=== PATIENT | male | born 1995 | race Caucasian/White ===

== ENCOUNTER 2016-11-13 14:27 | Emergency (ER) | payer OTHER ==
[~2016-11-13] VITALS: Ht 185.4 cm; Wt 90.7 kg
[2016-11-13 14:34] VITALS: TEMP 36.6; Ht 185.4 cm; Wt 90.7 kg
--- NOTE | 2016-11-13 15:00 | EMERGENCY ROOM VISIT NOTE ---
ED Visit Note First contact with patient: 14:40 CHIEF COMPLAINT: Toe injury HISTORY OF PRESENT ILLNESS: This 20-year-old male patient presents to the emergency department ambulatory complaining of pain in the right fifth toe. The patient states that he was running in the hallway and accidentally stubbed his toe. There is pain with weight bearing and they are able to move the toe fairly normally. There was no bleeding. There is no redness, warmth, or discharge. The patient has taken nothing for their symptoms. The patient has not had previous problems with this toe. No other complaints. REVIEW OF SYSTEMS: A 6 system review of systems was completed with positives and pertinent negatives listed in the HPI. ALLERGIES: No known drug allergies MEDICATIONS: None PMH: None SOCIAL HISTORY: The patient is a student. He lives locally PHYSICAL EXAM: Vital Signs: Reviewed Nurse's notes, vital signs stable. GENERAL : This is a 20-year-old male, in no acute distress, but appears in pain, well- developed, well-nourished. SKIN: There is no erythema, redness, or warmth of the right fifth toe. There is mild ecchymosis. There is no active bleeding and no laceration. Capillary refill less than two seconds. MUSCULOSKELETAL: The right fifth toe is tender to palpation over the entire toe. There is minimal limitation of motion due to tenderness. There is no visual deformity. The ankle joint is not swollen or tender. The foot is not swollen or tender. NEURO: Patient was alert and oriented to person place and time. Normal sensation to light and sharp touch. EMERGENCY DEPARTMENT COURSE: I examined the patient. An X-Ray of the right fifth toe was reviewed by myself and by radiology and shows fracture. The affected toe was man taped to the adjacent toe to provide some immobilization. The patient was placed in a postop shoe under my direction and the position was satisfactory. The patient was instructed on the use of crutches. The patient was discharged home in stable condition. RIGHT TOE(S) MIN 2 VIEWS CLINICAL HISTORY: right fifth toe injury Right trauma. Pain. COMPARISON: None. DISCUSSION: Fracture proximal phalanx fifth toe. Slight bony distraction and angulation. No evidence of dislocation. Moderate localized soft tissue edema. All remaining osseous structures are unremarkable. There is no evidence for soft tissue swelling. IMPRESSION: Oblique fracture proximal phalanx fifth toe. Localized soft tissue edema. Current/Historical Medications No Active Prescriptions or Reported Meds Allergies Coded Allergies: No Known Allergies (Unverified , 11/13/16) Vital Signs Date Time Temp Pulse Resp B/P Pulse Ox O2 Delivery O2 Flow Rate FiO2 11/13/16 15:35 68 18 122/78 98 11/13/16 14:34 36.6 50 18 119/73 98 Room Air Departure Information Impression Primary Impression: Fracture of fifth toe, right, closed Dispostion Home / Self-Care Condition GOOD Prescriptions No Active Prescriptions or Reported Meds Referrals No Doctor, Assigned (PCP) Patient Instructions ED Fx Toe Closed, My [facility] [employer] Additional Instructions Keep the toe man taped Motrin 600mg every 6-8 hours for moderate pain Return with worsening symptoms Contact orthopedics to schedule a follow up appointment
--- NOTE | 2016-11-13 15:16 | DIAGNOSTIC IMAGING REPORT ---
RIGHT TOE(S) MIN 2 VIEWS CLINICAL HISTORY: right fifth toe injury Right trauma. Pain. COMPARISON: None. DISCUSSION: Fracture proximal phalanx fifth toe. Slight bony distraction and angulation. No evidence of dislocation. Moderate localized soft tissue edema. All remaining osseous structures are unremarkable. There is no evidence for soft tissue swelling. IMPRESSION: Oblique fracture proximal phalanx fifth toe. Localized soft tissue edema. Electronically signed by: Rodney Ga M.D. 11/13/2016 3:14 PM Dictated Date/Time: 11/13/2016 3:13 PM
[2016-11-13 15:35] VITALS: BP 122/78; PULSE 68; O2SAT 98
== END 2016-11-13 15:39 | disposition home or self-care (01) ==
LOC: C.EDB 14:28 → C.EDD 15:39
DX: S92.501A Displaced unspecified fracture of right lesser toe(s), initial encounter for closed fracture (principal); W22.8XXA Striking against or struck by other objects, initial encounter; Y93.02 Activity, running